=== PATIENT | female | born 1950 | race Caucasian/White ===

== ENCOUNTER 2018-02-20 09:21 | Day surgery (SDC) | payer MEDICARE ==
[~2018-02-20] VITALS: Ht 157.5 cm; Wt 90.0 kg
[~2018-02-20 09:21] MED LIST: ASPI325 PO; CLON.1 PO; IBUP800 PO; LISHYD1012 PO; LORA.5 PO; OXYACE5T PO; Omeprazole20 M1 PO; PARO12.5 PO; SIMV10 PO
[2018-02-20] MEDS ORDERED: IBUP800 PO (09:41)
[2018-02-20] MEDS ORDERED: MELA3 PO (09:42)
[2018-02-20] MEDS ORDERED: POTCHL20ER (09:43)
[2018-02-20] MEDS ORDERED: CALCIUM + D3 E1 EACH PO (09:43)
== END 2018-02-20 11:40 | disposition home or self-care (01) ==
LOC: ORSCSDS 09:21
PROVIDERS: Ophthalmology
PROC: 08RJ3JZ Replacement of Right Lens with Synthetic Substitute, Percutaneous Approach (ICD-10-PCS; principal; 2018-02-20 10:30)
DX: H25.11 Age-related nuclear cataract, right eye (principal); I10 Essential (primary) hypertension; G47.33 Obstructive sleep apnea (adult) (pediatric); E66.9 Obesity, unspecified; Z68.36 Body mass index [BMI] 36.0-36.9, adult; Z79.82 Long term (current) use of aspirin; Z79.899 Other long term (current) drug therapy
CPT/HCPCS: J2250; J3010; J3301; J7040; V2632